=== PATIENT | male | born 1995 ===

== ENCOUNTER 2022-12-20 05:32 | Outpatient (CLI) | payer MEDICAID ==
[~2022-12-20] VITALS: Ht 157.5 cm; Wt 79.5 kg
[2022-12-20] MEDS ORDERED: VENL37.52 PO (12:20)
[2022-12-20] MEDS ORDERED: ARIP2TAB3 PO (12:20)
== END 2022-12-20 12:40 | disposition home or self-care (01) ==
LOC: PREOP 05:32
PROVIDERS: ATTEND Otolaryngology Otolaryngology/Facial Plastic Surgery
DX: Z01.818 Encounter for other preprocedural examination (principal)